=== PATIENT | female | born 1935 | race Caucasian/White ===

== ENCOUNTER 2020-04-23 11:25 | Outpatient (CLI) | payer MEDICARE ==
[~2020-04-23] VITALS: Ht 147.3 cm; Wt 48.2 kg
[~2020-04-23 11:25] MED LIST: COMBIRESP IH; MOBIC 7.5MG7.5 MG PO; NEURONTIN100 MG/CAP PO; NORVASC 10MG10 MG PO; PRILOSEC 20MG20 MG PO; REMERON 15M15 MG/TA1 PO; ULTRAM 50MG TAB50 MG PO
[2020-04-26] VITALS (16 sets, daily range): BP systolic 104–146; BP diastolic 51–84; PULSE 74–93
--- NOTE | 2020-04-26 13:35 | NUR ---
Pt has been resting on cot, nausea seems improved. Pt states she wants to go home. Son called to inform that pt will be DC'd soon.
--- NOTE | 2020-04-26 14:10 | NUR ---
Nausea had improved following initial dose of zofran. Upon attemting to sit pt up, she had return of nausea and dry heeving. Radiology contacted, new order given by Dr. Allen. Pt's son Logan updated on delay of DC and expresses understanding.
--- NOTE | 2020-04-26 14:40 | NUR ---
Prior to DC pt is assisted to dress and use restroom. She does these activities with little issue. Occasional nausea with few dry heeves continue. Pt has tolerated a few ice chips, denied desire for crackers. She insists she feels ready to DC home. Home care instructions and return precautions reviewed with pt and her son, both express understanding. INT is DC'd with catheter intact, and bleeding at site controlled prior to discharge. She is assisted out to car by wheelchair.
== END 2020-04-26 14:50 | disposition home or self-care (01) ==
LOC: COL.RAD
DX: R91.8 Other nonspecific abnormal finding of lung field (principal)
CPT/HCPCS: J2405